=== PATIENT | female | born 1965 | race Caucasian/White ===

== ENCOUNTER 2016-08-27 11:26 | Emergency (ER) | payer OTHER ==
[~2016-08-27] VITALS: Ht 162.6 cm; Wt 70.3 kg
[2016-08-27 11:26] VITALS: BP 145/97
== END 2016-08-27 12:38 | disposition home or self-care (01) ==
LOC: ER 11:30
DX: R51 Headache (principal)
CPT/HCPCS: 99283; A4606; Z7610

== ENCOUNTER 2016-12-29 18:31 | Emergency (ER) | payer OTHER ==
[~2016-12-29] VITALS: Ht 162.6 cm; Wt 72.6 kg
[2016-12-29 18:40] VITALS: BP 132/69
== END 2016-12-29 21:40 | disposition home or self-care (01) ==
LOC: ER 18:33
DX: L03.116 Cellulitis of left lower limb (principal); L84 Corns and callosities
CPT/HCPCS: A4606; Z7610

== ENCOUNTER 2018-01-12 12:08 | Emergency (ER) | payer OTHER ==
[~2018-01-12] VITALS: Ht 162.6 cm; Wt 75.7 kg
[2018-01-12 12:34] VITALS: BP 140/76
== END 2018-01-12 15:12 | disposition home or self-care (01) ==
LOC: ER 12:10
DX: S52.134A Nondisplaced fracture of neck of right radius, initial encounter for closed fracture (principal); S53.491A Other sprain of right elbow, initial encounter; F10.10 Alcohol abuse, uncomplicated; Y90.9 Presence of alcohol in blood, level not specified; W18.39XA Other fall on same level, initial encounter; Y93.89 Activity, other specified; Y92.89 Other specified places as the place of occurrence of the external cause; Y99.8 Other external cause status
CPT/HCPCS: 73080; 73090; 99284; A4606; Z7610

== ENCOUNTER 2023-02-13 11:53 | Emergency (ER) | payer OTHER ==
[~2023-02-13] VITALS: Ht 162.6 cm; Wt 63.5 kg
[2023-02-13] MEDS ORDERED: diphenhydrAMINE HCL 50 MG/ML VIAL ONE (12:28)
[2023-02-13] MEDS ORDERED: methylPREDNISolone SOD SUCC 125 MG/2ML VIAL ONE (12:28)
[2023-02-13] MEDS ORDERED: FAMOTIDINE/PF INJ 20 MG/2 ML VIAL IV ONE ×2 (12:29→12:30)
[2023-02-13] MEDS ORDERED: IV NS 0.9% 1,000 ML BAG IV ONE (12:30)
[2023-02-13] MEDS ORDERED: methylPREDNISolone SOD SUCC 125 MG/2ML VIAL IV ONE (12:30)
[2023-02-13] MEDS ORDERED: diphenhydrAMINE HCL 50 MG/ML VIAL IV ONE (12:30)
[2023-02-13] MEDS ORDERED: DIPH25CA83 PO (13:25)
[2023-02-13] MEDS ORDERED: FAMO-131 PO (13:25)
[2023-02-13] MEDS ORDERED: PRED20TA PO (13:25)
[2023-02-13 14:18] VITALS: BP 132/72; TEMP 98; O2SAT 100
== END 2023-02-13 14:19 | disposition home or self-care (01) ==
LOC: ER 11:53
DX: L50.0 Allergic urticaria (principal)
CPT/HCPCS: 99284; 96374; 96375; 96361; J1200; J3490; J2930; J7030